=== PATIENT | male | born 1990 | race Caucasian/White ===

== ENCOUNTER 2025-01-14 13:08 | Emergency (ER) | payer SELFPAY ==
[2025-01-14] VITALS (15 sets, daily range): BP systolic 114–193; BP diastolic 67–132; PULSE 111–158; RESP 16–22; TEMP 37.4; O2SAT 93–98; BMI 25.8
--- NOTE | 2025-01-14 13:37 | ED_ITS ---
HPI - Extremity Problem 2 General: Chief complaint: Extremity Injury, Lower Stated complaint: cant walk on both legs Time Seen by Provider: 01/14/25 13:13 History of Present Illness: 34-year-old man who presents the emergen cy room with lower extremity weakness. About 4 to 5 weeks ago he drove himself from [place] to here and went to a [employer] with a friend. He did not participate in the [employer] and has had no trauma. Dad says he seemed very sick the next day and did not get out of bed for a week and had become very weak since. He says his legs get very shaky. He points to his upper calves and his lower thighs as feeling very weak. No known fevers. He refused to come to the emergency room until his dad finally got him to come. His dad had to put him in a front end concrete bucket unloader at the porch of the house to get him to the truck. He says he takes no meds. Does no drugs. He says his legs feel sore like he is been working out. Related Data Home Medications ?Medication ?Instructions ?Recorded ?Confirmed aspirin 81 mg tablet,delayed 81 mg PO DAILY 01/14/25 0 01/14/25 release (Denita Low Dose Aspirin) ferrous sulfate 325 mg (65 mg 325 mg PO DAILY 01/14/25 01/14/25 iron) tablet (iron) multivit,calcium,min-folic acid 1 tab PO DAILY 5 01/14/25 240 mcg-D3 25 mcg-lycop 300 mcg tablet (One A Day Men Complete) pantoprazole 20 mg tablet,delayed 20 mg PO DAILY PRN S tomach acid 01/14/25 01/14/25 release Allergies Allergy/AdvReac Type Severity Reaction Status Date / Time No Known Allergies Allergy Verified 01/14/25 13:26 Review of Systems 2 Narrative: Constitutional symptoms: Negative except as documented in HPI. Skin symptoms: Negative except as documented in HPI. Eye symptoms: Negative except as documented in HPI. ENMT symptoms: Negative except as documented in HPI. Respiratory symptoms: Negative except as documented in HPI. Cardiovascular symptoms: Negative except as documented in HPI. Gastrointestinal symptoms: Negative except as documented in HPI. Genitourinary symptoms: Negative except as documented in HPI. Musculoskeletal symptoms: Negative except as documented in HPI. Neurologic symptoms: Negative except as documented in HPI. Psychiatric symptoms: Negative except as documented in HPI. Endocrine symptoms: Negative except as documented in HPI. Physical Exam 2 Narrative: EXAM NARRATIVE: General: Alert, no acute distress. Skin: Warm, dry. Head: Normocephalic, atraumatic. Neck: Supple, trachea midline. Eye: Extraocular movements are intact. Ears, nose, mouth and throat: mucosa moist. Cardiovascular: Regular, Normal peripheral perfusion. Respiratory: Lungs are clear to auscultation, respirations are non-labored, breath sounds are equal, Symmetrical chest wall expansion. Gastrointestinal: Soft, Nontender, Non distended Musculoskeletal: Normal ROM, no deformity. Patient moves his legs and feet without any difficulty while sitting in the chair. Nursing reports that when they try to stand him up he becomes very shaky and will not bear any weight. No sensory deficits. No swelling. No redness. Neurological: Alert and oriented, No focal neurological deficit observed. Psychiatric: Cooperative, appropriate mood & affect. Course 2 Vital Signs: Vital signs: Vital Signs Temperature 99.3 F 01/14/25 13:17 Pulse Rate 121 H 01/14/25 19:11 Respiratory Rate 16 01/14/25 18:00 Blood Pressure 193/132 01/14/25 19:11 Pulse Oximetry 95 01/14/25 19:11 Oxygen Delivery Me thod Room Air 01/14/25 19:11 MDM - Extremity (Nontraumatic) Medical Decision Making Medical decision making: Differential diagnosis for patient presenting with generalized weakness including but not limited to and based on the above HPI, review of systems and physical exam: Sepsis. Dehydration. Renal failure. Electrolyte abnormalities. Anemia. Congestive heart failure. Hypotension. Coronary syndrome. Hepatitis. Cirrhosis. Infections such as pneumonia, urinary tract infection, Tick bourne illness, Cellulitis, Viral infections including influenza and Covid-19. Workup: labwork and lab/exam driven imaging ordered to evaluate, rule in and rule out above pathologies. EKG: Time 1740. Rate 136. Sinus tachycardia, nonspecific ST-T changes, no ectopy, normal GA & QRS intervals, This was reviewed and interpreted by myself the ER physician at 1750. CT head: No acute intracranial process. no intracranial hemorrhage, no evidence of infarct. no evidence of acute fracture.This was reviewed and interpreted by myself the ER physician. CT of the lumbar spine: No evidence of trauma but there was some concern for L5 nerve root compression. MRI was suggested. Given the patient's leg weakness I felt that MRI was prudent at this time and so was ordered. This was reviewed and interpreted by myself the emergency room physician. I also reviewed the radiology report. Ultrasound of the lower extremities: No evidence of DVT. This was reviewed and interpreted by myself the emergency room physician. I also reviewed the radiology report. MRI of the lumbar spine: No evidence of iam neural impingement. This was reviewed and interpreted by myself the emergency room physician. I also reviewed the radiology report. CT angiogram of the chest with PE protocol: This was ordered as the patient has been tachycardic and hypertensive. No evidence of pulmonary embolism or other abnormality. The gallbladder appeared a bit inflamed on the CT scan but the patient has absolutely no right upper quadrant tenderness to palpation and no symptoms. This was reviewed and interpreted by myself the emergency room physician. I also reviewed the radiology report. Lab Review: Laboratory results were reviewed and interpreted by myself the emergency room physician. Mild leukocytosis. No anemia. No renal failure. Sodium is a little low at 130. Initial lactate was greater than 5. Repeat after some fluids was down to under 2. I reviewed the patient's medical record. Reexamination: Patient received labetalol and fluids. Blood pressure still quite elevated. Also remains somewhat tachycardic. Tried again to have him stand and he becomes so weak that he almost falls. Cannot bear weight. Consultation: I spoke with Dr. Garza who is on-call for the hospital service who agrees to admission. Assessment and plan: Tachycardia Generalized weakness Accelerated hypertension Possible dehydration ?2 L normal saline bolus. IV labetalol. IV hydralazine. -I discussed the patient with the hospitalist on-call who is admitting the patient. - Discussed findings and plan with patient. Answered any questions. - All laboratory values were reviewed and interpreted personally by myself, the ER physician - All imaging was reviewed and interpreted personally by myself, the ER physician. - Evaluation and treatment of this problem were appropriate in the emergency setting Lab Data 01/14/25 13:46 01/14/25 13:[address] 01/14/25 13:46 IMPRESSION: Negative head CT. Lumbar Spine CT 01/14/25 13:46 IMPRESSION: 1. No evidence of fracture or subluxation of the lumbar spine. 2. Suspected contacting the undersurface of the exiting L5 nerve roots. Follow-up MRI may be helpful for further detail if clinically warranted. 3. Nonspecific periureteral haziness on the right. Consider correlation with urinalysis for ascending urinary infection. Venous Duplex 01/14/25 14:51 IMPRESSION: 1. No sonographic evidence of deep venous thrombosis in either lower extremity. Lumbar Spine MRI 01/14/25 16:11 IMPRESSION: 1. No evidence of iam neural impingement, fracture or subluxation. 2. Contacting of the undersurfaces of the exiting L5 nerve roots, right greater than left. Chest CTA 01/14/25 17:52 IMPRESSION: 1. No evidence of PE or acute aortic abnormality. 2. Pericholecystic inflammatory changes suspicious for acute cholecystitis. Consider correlation with biliary labs and right upper quadrant ultrasound. Laboratory Results WBC 12.79 10^3/uL (3.29-11.43) H 01/14/25 13:46 RBC 4.47 10^6/uL (3.85-5.65) 01/14/25 13:46 Hgb 14.90 g/dL (11.27-16.99) 01/14/25 13:46 Hct 44.3 % (37-53) 01/14/25 13:46 MCV 99.1 fl (82-101) 01/14/25 13:46 MCH 33.3 pg (27-33) H 01/14/25 13:46 MCHC 33.6 g/dL (30-55) 01/14/25 13:46 RDW 13.2 % (12.1-15.1) 01/14/25 13:46 Plt Count 593 10^3/cmm (157-399) H 01/14/25 13:46 MPV 9.8 fL (7.4-10.4) 01/14/25 13:46 Neut % (Auto) 76.6 % 01/14/25 13:46 Lymph % (Auto) 14.9 % 01/14/25 13:46 Carbon % (Auto) 7.1 % 01/14/25 13:46 Eos % (Auto) 0.2 % 01/14/25 13:46 Baso % (Auto) 0.6 % 01/14/25 13:46 Neut # (Auto) 9.79 10^3/uL (1.8-7.7) H 01/14/25 13:46 Lymph # (Auto) 1.9 10^3/uL (0.8-4.8) 01/14/25 13:46 Carbon # (Auto) 0.9 10^3/uL (0.2-0.9) 01/14/25 13:46 Eos # (Auto) 0.0 10^3/uL (0.0-0.8) 01/14/25 13:46 Baso # (Auto) 0.1 10^3/uL (0.0-0.1) 01/14/25 13:46 Nucleated RBC % (auto) 0 % 01/14/25 13:46 Nucleated RBCs # 0.0 /100WBC 01/14/25 13:46 ESR 85 mm/hr (0-10) H 01/14/25 13:46 Specimen Type Arterial 01/14/25 15:23 Sample Site Radial, right 01/14/25 15:23 ABG pH 7.52 (7.35-7.45) H 01/14/25 15:23 ABG pCO2 31.8 mmHg (35-45) L 01/14/25 15:23 ABG pO2 58.1 mmHg (80.0-100.0) L 01/14/25 15:23 ABG PO2/FiO2 Ratio 276 01/14/25 15:23 ABG HCO3 26.1 mmol/L (22-26) H 01/14/25 15:23 ABG O2 Saturation 93.1 01/14/25 15:23 ABG Base Excess 3.8 mmol/L (-2.0-2.0) H 01/14/25 15:23 Onur Test Pos 01/14/25 15:23 A-a O2 Gradient 6.6 mmHg (5-10) 01/14/25 15:23 Hematocrit 43.5 % (42-52) 01/14/25 15:23 Hgb O2 Saturation 92.5 % (95-100) L 01/14/25 15:23 Carboxyhemoglobin 1.0 %THgb (0.4-20.1) 01/14/25 15:23 Methemoglobin < 0.0 % (0.4-1.5) L 01/14/25 15:23 Total Hemoglobin 14.2 g/dL (14-18) 01/14/25 15:23 Sodium 133.0 mmol/L (131-143) 01/14/25 15:23 Potassium 3.4 mmol/L (3.5-5.0) L 01/14/25 15:23 Glucose 103.0 mg/dL (70-115) 01/14/25 15:23 Ionized Calcium 1.2 mmol/L (1.1-1.4) 01/14/25 15:23 O2 Delivery Device Room air 01/14/25 15:23 FiO2 21.0 % 01/14/25 15:23 It Technical Architect ID [email or web address] 01/14/25 15:23 Sodium 130 mmol/L (136-145) L 01/14/25 13:46 Potassium 3.2 mmol/L (3.5-5.1) L 01/14/25 13:46 Chloride 89 mmol/L (98-107) L 01/14/25 13:46 Carbon Dioxide 20 mmol/L (22-29) L 01/14/25 13:46 Anion Gap 24.2 (5-19) H 01/14/25 13:46 BUN 4 mg/dL (6-20) L 01/14/25 13:46 Creatinine 0.8 mg/dL (0.7-1.2) 01/14/25 13:46 GFR Calculation 111.3 mL/min (90-130) 01/14/25 13:46 Glucose 164 mg/dL (65-115) H 01/14/25 13:46 Calculated Osmolality 271 mOsm/kg (285-295) L 01/14/25 13:46 Lactic Acid 5.3 mmol/L (0.5-2.2) H* 01/14/25 13:46 Lactic Acid (Sepsis) 1.4 mmol/L (0.5-2.2) 01/14/25 18:00 Calcium 9.8 mg/dL (8.5-10.5) 01/14/25 13:46 Total Bilirubin 0.9 mg/dL (0.15-1.2) 01/14/25 13:46 AST 37 U/L (0-40) 01/14/25 13:46 ALT 40 U/L (0-41) 01/14/25 13:46 Alkaline Phosphatase 186 U/L (40-130) H 01/14/25 13:46 Creatine Kinase 129 U/L (39-308) 01/14/25 13:46 C-Reactive Protein 40.9 mg/L (0.0-4.9) H 01/14/25 13:46 Total Protein 8.7 g/dL (6.6-8.7) 01/14/25 13:46 Albumin 3.4 g/dL (3.5-5.2) L 01/14/25 13:46 Globulin 5.3 g/dL (1.3-4.6) H 01/14/25 13:46 Procalcitonin 0.17 ng/mL (0-0.5) 01/14/25 13:46 TSH 2.32 uIU/mL (0.27-4.20) 01/14/25 13:46 Amorphous Sediment Not Reportable 01/14/25 18:08 Salicylates < 0.3 mg/dL (3-10) L 01/14/25 13:46 Urine Opiates Screen Negative ng/mL (Negative) 01/14/25 18:08 Acetaminophen < 5.0 ug/mL (10-30) L 01/14/25 13:46 Ur Barbiturates Screen Negative ng/mL (Negative) 01/14/25 18:08 Ur Phencyclidine Scrn Negative ng/mL (Negative) 01/14/25 18:08 Ur Amphetamines Screen Negative ng/mL (Negative) 01/14/25 18:08 U Benzodiazepines Scrn Negative ng/mL (Negative) 01/14/25 18:08 Urine Cocaine Screen Negative ng/mL (Negative) 01/14/25 18:08 U Marijuana (THC) Screen Negative ng/mL (Negative) 01/14/25 18:08 Ethyl Alcohol < 10 mg/dL (0-10) 01/14/25 13:46 Influenza A (PCR) Negative (Negative) 01/14/25 14:26 Influenza Type B (PCR) Negative (Negative) 01/14/25 14:26 RSV (PCR) Negative (Negative) 01/14/25 14:26 SARS-CoV-2 (PCR) Negative (Negative) 01/14/25 14:26 All radiology interpretation(s) finalized by discharge Discharge Plan Discharge Patient Disposition: Admitted As Inpatient Clinical Impression: Generalized weakness, Accelerated hypertension, Tachycardia Condition: Stable Coding Level of Care Code ED Pattern Vault Clerk for Rosario Tsai
--- NOTE | 2025-01-14 13:46 | CT_ITS ---
WS: [id number] CT HEAD NONCONTRAST HISTORY: leg weakness TECHNIQUE: Contiguous axial imaging performed through the brain. Bone and soft tissue windows. Sagittal and coronal reformats reviewed. All CT scans at [facility] use at least one of these dose optimization techniques: automated exposure control; mA and/or kV adjustment per patient size (includes targeted exams where dose is matched to clinical indication); or iterative reconstruction. DLP: 1159.08 mGy.cm COMPARISON: None available. No acute intracranial hemorrhage, midline shift or mass effect. No atrophy or prior infarcts or herniation. Ventricles: Normal size with no hydrocephalus. No inferior displacement the cerebellar tonsils. Paranasal sinuses: As visualized are clear. Mastoid air cells: Well pneumatized. Calvarium and scalp: Skull is intact with no soft tissue edema or swelling. CT/CT head wo con* [id number] IMPRESSION: Negative head CT.
--- NOTE | 2025-01-14 13:46 | CTR_ITS ---
PROCEDURE INFORMATION: Exam: CT Lumbar Spine Without Contrast Exam date and time: 01/14/2025 2:29 PM Age: 34 years old Clinical indication: Weakness; Additional info: Leg weakness, bilateral TECHNIQUE: Imaging protocol: Computed tomography of the lumbar spine without contrast. Radiation optimization: All CT scans at this facility use at least one of these dose optimization techniques: automated exposure control; mA and/or kV adjustment per patient size (includes targeted exams where dose is matched to clinical indication); or iterative reconstruction. COMPARISON: No relevant prior studies available. RADIATION DOSE METRICS: Total DLP (mGy-cm): 820.31 FINDINGS: Bones/joints: No evidence of fracture or subluxation. No evidence of aggressive osseous lesion. L1-L2: No central or foraminal stenosis. L2-L3: No central or foraminal stenosis. L3-L4: Mild disc bulge without central or foraminal stenosis. L4-L5: Disc bulge results in very mild bilateral foraminal narrowing. No central stenosis. L5-S1: Disc osteophyte results in mild bilateral foraminal stenosis with contacting of the undersurfaces of the exiting L5 nerve roots. No iam impingement. No central stenosis. Soft tissues: The paraspinal soft tissues are grossly unremarkable. There is periureteral haziness on the right. No evidence of fluid collection hematoma. CT/CT lumbar spine wo con* [id number] IMPRESSION: 1. No evidence of fracture or subluxation of the lumbar spine. 2. Suspected contacting the undersurface of the exiting L5 nerve roots. Follow-up MRI may be helpful for further detail if clinically warranted. 3. Nonspecific periureteral haziness on the right. Consider correlation with urinalysis for ascending urinary infection.
[2025-01-14 13:59] LABS: Hematocrit 44.3 % (37-53); Hemoglobin 14.90 g/dL (11.27-16.99); Mean Corpuscular HGB Conc 33.6 g/dL (30-55); Mean Corpuscular Hemoglobin 33.3 pg (27-33); Mean Corpuscular Volume 99.1 fl (82-101); Nucleated Red Blood Cells % 0 %; Platelet Count 593 10^3/cmm (157-399); Red Blood Count 4.47 10^6/uL (3.85-5.65); White Blood Count 12.79 10^3/uL (3.29-11.43)
[2025-01-14 14:18] LABS: Alanine Aminotransferase 40 U/L (0-41); Albumin Level 3.4 g/dL (3.5-5.2); Alkaline Phosphatase 186 U/L (40-130); Anion Gap 24.2 (5-19); Aspartate Amino Transferase 37 U/L (0-40); Blood Urea Nitrogen 4 mg/dL (6-20); Calcium 9.8 mg/dL (8.5-10.5); Carbon Dioxide 20 mmol/L (22-29); Chloride 89 mmol/L (98-107); Creatinine Clr Calc Pharmacy 137.7840; Globulin 5.3 g/dL (1.3-4.6); Glucose 164 mg/dL (65-115); Osmolality Calculated 271 mOsm/kg (285-295); Potassium 3.2 mmol/L (3.5-5.1); Sodium 130 mmol/L (136-145); Total Protein 8.7 g/dL (6.6-8.7)
[2025-01-14 14:25] LABS: Procalcitonin 0.17 ng/mL (0-0.5)
[2025-01-14 14:30] LABS: Lactic Sepsis W/Reflex 5.3 mmol/L (0.5-2.2)
--- NOTE | 2025-01-14 14:51 | USR_ITS ---
PROCEDURE INFORMATION: Exam: US Duplex Lower Extremity Veins, Bilateral Exam date and time: 01/14/2025 4:31 PM Age: 34 years old Clinical indication: Pain; Leg, lower; Bilateral; Additional info: Bilateral lower extremity weakness, bilateral lower extremity weakness TECHNIQUE: Imaging protocol: Real-time duplex ultrasound of the bilateral extremities with 2-D cuello scale, color Doppler flow and spectral waveform analysis including responses to compression and other maneuvers (when performed) with image documentation. Complete exam focused on the lower extremity veins. COMPARISON: No relevant prior studies available. FINDINGS: Right deep veins: The common femoral, femoral, proximal profunda femoral and popliteal veins are patent without evidence of thrombus and demonstrate normal waveforms. Left deep veins: The common femoral, femoral, proximal profunda femoral and popliteal veins are patent without evidence of thrombus and demonstrate normal waveforms. Superficial veins: Bilateral saphenofemoral junctions are patent without thrombus. No evidence of thrombophlebitis. Soft tissues: No evidence of fluid collection. US/CV venous duplex [facility] [id number] IMPRESSION: 1. No sonographic evidence of deep venous thrombosis in either lower extremity.
[2025-01-14 15:07] LABS: Thyroid Stimulating Hormone 2.32 uIU/mL (0.27-4.20)
[2025-01-14 15:11] LABS: Acetaminophen < 5.0 ug/mL (10-30); Alcohol Level < 10 mg/dL (0-10); Salicylate < 0.3 mg/dL (3-10)
[2025-01-14 15:23] LABS: Respiratory Syncytial Virus Ce NEGATIVE (Negative); SARS-CoV-2 PCR NEGATIVE (Negative)
[2025-01-14 15:34] LABS: ABG PCO2 31.8 mmHg (35-45); ABG PH Result 7.52 (7.35-7.45); Alveolar-Arterial Oxygen Gradi 6.6 mmHg (5-10); Arterial Blood Gas Hematocrit 43.5 % (42-52); Blood Gas Allen Test Pos; Blood Gas Operator Identificat glc; Blood Gas Sample Site Radial, right; Blood Gas Sample Type Arterial; Carboxyhemoglobin 1.0 %THgb (0.4-20.1); Glucose Level-ABG 103.0 mg/dL (70-115); HCO3 ABG 26.1 mmol/L (22-26); Ionized Calcium Level - ABG 1.2 mmol/L (1.1-1.4); Methemoglobin < 0.0 % (0.4-1.5); Oxygen Saturation ABG 93.1; PO2 ABG 58.1 mmHg (80.0-100.0); PO2 FiO2 Ratio Arterial Blood 276; Potassium Level - ABG 3.4 mmol/L (3.5-5.0); Sodium Level - ABG 133.0 mmol/L (131-143)
[2025-01-14 15:40] LABS: Reflex Lactate Order REFLEX LACTIC ORDERD
--- NOTE | 2025-01-14 16:11 | MRR_ITS ---
PROCEDURE INFORMATION: Exam: MR Lumbar Spine Without Contrast Exam date and time: 01/14/2025 4:46 PM Age: 34 years old Clinical indication: Abnormal findings; Abnormal xray or scan of thoracolumbar spine; Suspected contacting the undersurface of the exiting l5 nerve roots. ; Additional info: Le weakness, abnormal CT TECHNIQUE: Imaging protocol: Magnetic resonance imaging of the lumbar spine without contrast. COMPARISON: CT lumbar spine wo con* [id number] 01/14/2025 2:29 PM FINDINGS: Bones/joints: No evidence of acute fracture or subluxation. No evidence of aggressive osseous lesion. Spinal cord: Visualized cord signal is unremarkable. Conus terminates at T12-L1. L1-L2: No central or foraminal stenosis. L2-L3: No central or foraminal stenosis. L3-L4: Mild disc bulge without central or foraminal stenosis. L4-L5: Mild disc bulge results in very mild bilateral foraminal narrowing. No central stenosis. L5-S1: Disc bulge with posterior annular fissure and early disc osteophyte formation resulting in mild right-sided foraminal stenosis with contacting of the undersurface of the exiting right L5 nerve root. No evidence of impingement. Very mild left-sided foraminal narrowing with slight contacting the undersurface of the exiting left L5 nerve root. No central stenosis. Soft tissues: Paraspinal soft tissues are unremarkable. No evidence of retroperitoneal hemorrhage or fluid collection. MR/MR lumbar spine wo con* [id number] IMPRESSION: 1. No evidence of iam neural impingement, fracture or subluxation. 2. Contacting of the undersurfaces of the exiting L5 nerve roots, right greater than left.
--- NOTE | 2025-01-14 17:40 | ECG_ITS ---
[facility] Date: 2025-01[facility]14 Pat Name: Jewel Herrera Department: Room: Gender: Male [employer] Supervisor: : 1990 Requested By: Albertina Sanchez Order Number: [id number] Cox MD: Chelsea Fall M.D. Measurements Intervals [place] Rate: 136 P: 31 CT: 135 QRS: 23 QRSD: 81 T: 31 QT: 330 QTc: 498 Interpretive Statements SINUS TACHYC[address] DEVIATION AND MODERATE T-WAVE ABNORMALITY, CONSIDER ANTEROLATERAL ISCHEMIA [-0.1+ mV T-WAVE IN V3-V6] ST DEVIATION AND MODERATE T-WAVE ABNORMALITY, CONSIDER INFERIOR ISCHEMIA [-0.1+ mV T-WAVE IN II/aVF] No previous ECG available for comparison Electronically Signed On 01-14-2025 20:10:17 CDT by Chelsea Fall M.D. [email or web address]
[2025-01-14] MEDS: labetalol 5 mg/mL SDV 20mL 10 MG IVP (17:47)
--- NOTE | 2025-01-14 17:52 | CTR_ITS ---
PROCEDURE INFORMATION: Exam: CTA Chest With Contrast Exam date and time: 01/14/2025 6:42 PM Age: 34 years old Clinical indication: Shortness of breath; Additional info: Tachycardia TECHNIQUE: Imaging protocol: Computed tomographic angiography of the chest with contrast. Exam focused on the arteries. 3D rendering (Not supervised by radiologist): MIP and/or 3D reconstructed images were created by the technologist. Radiation optimization: All CT scans at this facility use at least one of these dose optimization techniques: automated exposure control; mA and/or kV adjustment per patient size (includes targeted exams where dose is matched to clinical indication); or iterative reconstruction. Contrast material: OMNIPAQUE 350; Contrast volume: 100 ml; Contrast route: INTRAVENOUS (IV); COMPARISON: No relevant prior studies available. RADIATION DOSE METRICS: Total DLP (mGy-cm): 388.42 FINDINGS: Pulmonary arteries: No evidence of pulmonary thromboembolism. Aorta: No evidence of aneurysmal dilatation or dissection of the thoracic aorta. Thyroid: Grossly unremarkable. Lungs: No focal consolidation. No evidence of pneumonia. Pleural spaces: No evidence of pleural effusion. No pneumothorax. Heart: No cardiomegaly. No pericardial effusion. Mediastinal space: No evidence of mediastinal mass, fluid collection or hematoma. Lymph nodes: No mediastinal or hilar adenopathy. Bones/joints: No evidence of acute fracture or aggressive osseous lesion. Soft tissues: No evidence of fluid collection or hematoma in the superficial soft tissues. Other findings: There are pericholecystic inflammatory changes suspicious for acute cholecystitis. CT/CT angio chest PE protcl [id number] IMPRESSION: 1. No evidence of PE or acute aortic abnormality. 2. Pericholecystic inflammatory changes suspicious for acute cholecystitis. Consider correlation with biliary labs and right upper quadrant ultrasound.
[2025-01-14 18:24] LABS: Lactic Acid level (Lactate) 1.4 mmol/L (0.5-2.2)
[2025-01-14] MEDS: iohexol 350 mg/mL 500 mL Btl (per mL) IV (18:47)
[2025-01-14 19:17] LABS: Glucose Urine UA Negative (Normal); Nitrate Urine Negative (Negative); Specific Gravity, Urine 1.013 (1.005-1.030)
[2025-01-14 19:22] LABS: PCP Screen Urine Negative (Negative)
[2025-01-14] MEDS: hyDRALAzine 20 mg/mL INJ 1 mL IVP (19:51)
[2025-01-15 00:16] VITALS: BP 139/96; PULSE 126; O2SAT 93
== END 2025-01-15 | disposition short-term general hospital (02) ==
PROVIDERS: Emergency Provider Emergency Medicine
DX: R53.1 Weakness (principal); I10 Essential (primary) hypertension; R00.0 Tachycardia, unspecified; Z11.52 Encounter for screening for COVID-19
CPT/HCPCS: 36415; 36600; 70450; 71275; 72131; 72148; 80051; 80053; 80306; 80307; 81001; 82330; 82550; 82805; 83605; 84145; 84443; 85025; 85651; 86140; 87040; 87086; 87637; 93005; 93970; 96361; 96374; 99285; J0360; J3490; J7030

== ENCOUNTER 2025-04-15 12:13 | Outpatient (RCR) | payer MEDICAID, SELFPAY | END 2025-04-24 23:59 | disposition home or self-care (01) | LOC: TPT 12:13 | PROVIDERS: Visit Provider Family Medicine | DX: G61.0 Guillain-Barre syndrome (principal); M62.81 Muscle weakness (generalized) | CPT/HCPCS: 97140; 97162; 97530 ==

== ENCOUNTER 2025-04-15 14:17 | Outpatient (CLI) | payer MEDICAID, SELFPAY ==
--- NOTE | 2025-04-15 13:15 | USCV_ITS ---
SharonVitaly singhin Age: 34 Gender: M : 1990 Exam Date: 04/15/2025 15:01 Ordering Phys: Aliya Huber [employer]IST [employer]-Yissel Technologist: TEDDY [place] [facility] [place]: [place] edema HISTORY: Lower extremity edema-pedal PROCEDURES: Venous duplex imaging was performed in bilateral lower extremities. The following venous structures were evaluated: common femoral vein, profunda vein, proximal portion of the greater saphenous vein, superficial femoral vein, and the popliteal vein. In addition, the posterior tibial and peroneal trunk were evaluated. FINDINGS: Normal 2-D Doppler and augmentation and compressibility throughout the lower extremity venous structures. Additional imaging through the proximal calf veins also reveals no thrombus. Limited evaluation of the greater saphenous vein is patent with no thrombus. CONCLUSIONS No DVT bilateral lower extremities. Technically limited exam. Dr. Donna Montez DO (Electronically Signed) Final Date: 15 April 2025 15:42 S
--- NOTE | 2025-04-15 14:29 | US_ITS ---
WS: [id number] RIGHT UPPER QUADRANT ULTRASOUND HISTORY: DZ OF GALLBLADDER COMPARISON: None available. Liver: 16.7 cm in length. Normal size liver and echogenicity. No bile duct dilatation or mass. Portal Vein: Normal hepatopetal flow with monophasic waveform. Gallbladder: Gallbladder is contracted. No stones are identified. CBD: 0.4 cm Pancreas: Obscured by bowel gas. Right kidney: 10.9 cm in length. Normal size and echogenicity. No hydronephrosis or mass. Aorta and IVC: Unremarkable abdominal aorta and IVC. No ascites. US/US gall bladder [id number] IMPRESSION: 1. Contracted gallbladder. No stones identified or intrahepatic duct dilatatio n. Gallbladder contraction may be due to nonfasting state or gallbladder dysfun ction. 2. Negative liver.
== END 2025-04-15 14:18 | disposition home or self-care (01) ==
LOC: RAD 14:18
PROVIDERS: PCP Nurse Practitioner Family; Visit Provider Nurse Practitioner Family
DX: M79.89 Other specified soft tissue disorders (principal); K82.8 Other specified diseases of gallbladder
CPT/HCPCS: 76705; 93970